=== PATIENT | male | born 1985 | race African-American/Black ===

== ENCOUNTER 2018-07-17 19:33 | Emergency (ER) | payer MEDICAID ==
[~2018-07-17] VITALS: Ht 182.9 cm; Wt 82.0 kg
[2018-07-17] MEDS ORDERED: MORPHINE SULFATE 4 MG/ML CPJ (NOT FOR IM USE) IV STA (19:40)
[2018-07-17] MEDS ORDERED: SODIUM CHLORIDE 0.9% 1,000 ML IV ONE (19:40)
[2018-07-17 20:46] LABS: BASOPHILS % 0.3 % (0.0-2.0); EOSINOPHILS % 0.6 % (0.0-5.0); HEMATOCRIT. 36.2 % (42.0-52.0); HEMOGLOBIN. 11.6 g/dL (14.0-18.0); LYMPHOCYTES % 27.1 % (20.0-50.0); MEAN CORPUSCULAR VOLUME 87.2 fL (80.0-94.0); MEAN PLATELET VOLUME 8.4 fl (7.4-10.4); MONOCYTES % 11.4 % (2.0-8.0); NEUTROPHILS % 60.6 % (40.0-76.0); PLATELET 246 x1000/uL (130-400); RED BLOOD CELL COUNT 4.15 mill/uL (4.7-6.1); RED CELL DISTRIBUTION WIDTH 14.4 % (11.6-14.6)
[2018-07-17 20:54] LABS: CHLORIDE 110 mEq/L (98-107)
[2018-07-17 20:55] VITALS: BP 113/69
[2018-07-17 21:02] LABS: INR 1.1
== END 2018-07-17 21:00 | disposition short-term general hospital (02) ==
LOC: ER 19:33
DX: S49.81XA Other specified injuries of right shoulder and upper arm, initial encounter (principal); F17.200 Nicotine dependence, unspecified, uncomplicated; W34.09XA Accidental discharge from other specified firearms, initial encounter; Y93.89 Activity, other specified; Y92.89 Other specified places as the place of occurrence of the external cause; Y99.8 Other external cause status
CPT/HCPCS: 36415; 36430; 71045; 73060; 80053; 85025; 85610; 86850; 86900; 86901; 86920; 96361; 96374; 99291; J2270; J7030; P9016